=== PATIENT | male | born 1955 | race Caucasian/White ===

== ENCOUNTER 2023-08-26 07:49 | Inpatient (IN) | payer MEDICARE, BC ==
[2023-08-26] MEDS ORDERED: Naloxone 0.4 MG/ML SDV IVPUSH PRN ×2 (08:13→14:13)
[2023-08-26] MEDS ORDERED: Dextrose 5%-0.9% NaCl 1,000 ML IV SCH (08:15)
[2023-08-26 08:19] LABS: BASOPHILS PERCENT AUTO 0.2 % (0.1-1.3); HEMATOCRIT 38.5 % (38.4-49.7); HEMOGLOBIN 13.4 g/dL (12.9-16.9); IMMATURE GRAN ABSOLUTE AUTO 0.04 K/uL (0.00-0.23); IMMATURE GRAN PERCENT AUTO 0.3 % (0.0-0.7); LYMPHOCYTES ABSOLUTE AUTO 1.38 K/uL (0.8-3.3); LYMPHOCYTES PERCENT AUTO 11.6 % (11.4-47.7); MEAN CORPUSCULAR HEMOGLOBIN 32.8 pg (31.6-35.5); MEAN CORPUSCULAR HGB CONC 34.8 g/dL (31.6-35.5); MEAN CORPUSCULAR VOLUME 94.4 fL (81.4-99.0); MONOCYTES ABSOLUTE AUTO 0.88 K/uL (0.20-0.90); MONOCYTES PERCENT AUTO 7.4 % (3.3-12.6); NEUTROPHILS ABSOLUTE AUTO 9.61 K/uL (1.0-7.6); NEUTROPHILS PERCENT AUTO 80.5 % (40.0-78.1); PLATELET COUNT,PLT 151 K/uL (130-375); RED BLOOD CELL COUNT 4.08 M/uL (4.14-5.76); WHITE BLOOD CELL COUNT,WBC 11.9 K/uL (3.2-11.0)
[2023-08-26 08:27] LABS: BASOPHILS ABSOLUTE AUTO 0.02 K/uL (0.00-0.10)
[2023-08-26] MEDS: HYDROmorphone 0.5 MG/0.5 ML Syringe IVPUSH PRN ×4 (08:42→22:51)
[2023-08-26 08:44] LABS: INR 1.1; PROTHROMBIN TIME 10.9 sec (9.2-10.6); PTT,PARTIAL THROMBOPLSTIN TIME 25.6 sec (21.8-27.3)
[2023-08-26 08:45] LABS: CALCIUM 8.3 mg/dL (8.5-10.1); CREATININE 0.8 mg/dL (0.8-1.3); EST CRCL DRUG DOSING (CG) 108.5 mL/min; POTASSIUM,K 4.4 mmol/L (3.6-5.2)
[2023-08-26] MEDS ORDERED: Ondansetron 4 MG/2 ML SDV IVPUSH ONE (08:46)
[2023-08-26 08:48] LABS: ANION GAP 16.4 mmol/L (5.0-14.0)
[2023-08-26 09:35] LABS: APPEARANCE,URINE CLEAR (CLEAR); BILIRUBIN,URINE NEGATIVE (NEGATIVE); COLOR,URINE YELLOW (YELLOW); GLUCOSE,URINE NEGATIVE (NEGATIVE); KETONES,URINE 15 mg/dL (NEGATIVE); LEUKOCYTE ESTERASE,URINE NEGATIVE (NEGATIVE); NITRITE,URINE NEGATIVE (NEGATIVE); OCCULT BLOOD,URINE NEGATIVE (NEGATIVE); PH,URINE 5.5 (5.0-8.0); PROTEIN,URINE NEGATIVE (NEGATIVE); UROBILINOGEN,URINE 0.2 EU/dL (0.2-1.0)
[2023-08-26 09:42] LABS: RBC,URINE 0-5 (0-5); WBC,URINE 0-5 (0-5)
[2023-08-26 09:43] LABS: AMORPHOUS SEDIMENT,URINE NOT SEEN; BACTERIA,URINE NOT SEEN; EPITHELIAL CELLS,URINE FEW; MUCUS,URINE NOT SEEN
[2023-08-26] MEDS ORDERED: amLODIPine 5 MG Tab PO ONE (11:18)
[2023-08-26] MEDS ORDERED: Bupivacaine 0.5% 50 ML MDV ONE (13:51)
[2023-08-26] MEDS ORDERED: Albuterol 0.083% 2.5 MG/3 ML Neb Soln NEB PRN (14:13)
[2023-08-26] MEDS ORDERED: Sodium Chloride 0.9% 10 ML Syringe FLUSH PRN (14:13)
[2023-08-26] MEDS: Folic Acid 1 MG Tab PO SCH (14:37)
[2023-08-26] MEDS: Thiamine 100 MG Tab PO SCH (14:37)
[2023-08-26] MEDS: Sodium Chloride 0.9% 1,000 ML IV SCH ×2 (14:38→22:56)
[2023-08-26] MEDS ORDERED: ceFAZolin 2 GM in Premix Bag 1 BAG IV ONE (16:00)
[2023-08-26] MEDS ORDERED: Midazolam 1 MG/ML 2 ML SDV ONE ×2 (16:02→16:47)
[2023-08-26] MEDS ORDERED: fentaNYL 100 MCG/2 ML SDV ONE (16:02)
[2023-08-26] MEDS ORDERED: Propofol 200 MG/20 ML SDV ONE ×6 (16:02→17:56)
[2023-08-26] MEDS ORDERED: Lactated Ringers 1,000 ML ONE (16:59)
[2023-08-26] MEDS ORDERED: Ondansetron 4 MG/2 ML SDV ONE (17:06)
[2023-08-26] MEDS ORDERED: Sodium Chloride 0.9% 10 ML ONE (17:27)
[2023-08-26] MEDS ORDERED: Labetalol 20 MG/4 ML Syringe ONE (18:09)
[2023-08-26] MEDS ORDERED: Labetalol 20 MG/4 ML Syringe IVPUSH ONE (19:06)
[2023-08-26] MEDS: Lisinopril 5 MG Tab PO SCH (20:12)
[2023-08-26] MEDS: Aspirin 325 MG Tab.EC PO SCH (20:16)
[2023-08-26] MEDS: Ondansetron 4 MG/2 ML SDV IV PRN (21:28)
[2023-08-26] MEDS ORDERED: Sodium Chloride 0.9% 1,000 ML IV ONE (23:09)
[2023-08-27] MEDS: HYDROmorphone 0.5 MG/0.5 ML Syringe IVPUSH PRN (00:19)
[2023-08-27] MEDS ORDERED: Sodium Chloride 0.9% 1,000 ML IV ONE ×2 (01:22→10:20)
[2023-08-27] MEDS: Sodium Chloride 0.9% 1,000 ML IV SCH ×3 (02:23→17:48)
[2023-08-27] MEDS: oxyCODONE 5 MG Tab PO PRN ×3 (02:49→14:54)
[2023-08-27] MEDS: Ketorolac 30 MG/ML SDV IVPUSH PRN ×2 (03:02→17:54)
[2023-08-27 05:22] LABS: HEMATOCRIT 26.2 % (38.4-49.7); HEMOGLOBIN 8.9 g/dL (12.9-16.9); MEAN CORPUSCULAR HEMOGLOBIN 33.1 pg (31.6-35.5); MEAN CORPUSCULAR VOLUME 97.4 fL (81.4-99.0); RED BLOOD CELL COUNT 2.69 M/uL (4.14-5.76); WHITE BLOOD CELL COUNT,WBC 10.6 K/uL (3.2-11.0)
[2023-08-27 05:38] LABS: CALCIUM 7.6 mg/dL (8.5-10.1); CREATININE 0.9 mg/dL (0.8-1.3); EST CRCL DRUG DOSING (CG) 96.44 mL/min; POTASSIUM,K 4.7 mmol/L (3.6-5.2)
[2023-08-27 05:42] LABS: ANION GAP 11.7 mmol/L (5.0-14.0)
[2023-08-27] MEDS: Aspirin 325 MG Tab.EC PO SCH (08:34)
[2023-08-27] MEDS: Folic Acid 1 MG Tab PO SCH (08:35)
[2023-08-27] MEDS: Thiamine 100 MG Tab PO SCH (08:36)
[2023-08-27] MEDS: Gabapentin 400 MG Cap PO SCH ×2 (12:25→20:42)
[2023-08-27] MEDS: LORazepam 1 MG Tab PO SCH ×2 (16:44→17:54)
[2023-08-28] MEDS: Gabapentin 400 MG Cap PO SCH ×3 (04:25→21:33)
[2023-08-28] MEDS: oxyCODONE 5 MG Tab PO PRN ×2 (04:28→12:52)
[2023-08-28 04:34] LABS: HEMATOCRIT 18.2 % (38.4-49.7); MEAN CORPUSCULAR HEMOGLOBIN 33.5 pg (31.6-35.5); MEAN CORPUSCULAR HGB CONC 34.1 g/dL (31.6-35.5); MEAN CORPUSCULAR VOLUME 98.4 fL (81.4-99.0); RED BLOOD CELL COUNT 1.85 M/uL (4.14-5.76); WHITE BLOOD CELL COUNT,WBC 8.4 K/uL (3.2-11.0)
[2023-08-28 04:42] LABS: HEMOGLOBIN 6.2 g/dL (12.9-16.9)
[2023-08-28 04:48] LABS: CALCIUM 7.3 mg/dL (8.5-10.1); CREATININE 0.8 mg/dL (0.8-1.3); EST CRCL DRUG DOSING (CG) 108.5 mL/min
[2023-08-28] MEDS: Lisinopril 5 MG Tab PO SCH (09:44)
[2023-08-28] MEDS: Aspirin 325 MG Tab.EC PO SCH (09:44)
[2023-08-28] MEDS: Thiamine 100 MG Tab PO SCH (09:44)
[2023-08-28] MEDS: Folic Acid 1 MG Tab PO SCH (09:44)
[2023-08-28] MEDS: Acetaminophen 325 MG Tab PO PRN (13:29)
[2023-08-28] MEDS: Ketorolac 30 MG/ML SDV IVPUSH PRN (15:53)
[2023-08-28] MEDS: Polyethylene Glycol 3350 Powder 17 GM Packet PO PRN (18:34)
[2023-08-29 04:13] LABS: HEMATOCRIT 24.1 % (38.4-49.7); HEMOGLOBIN 8.2 g/dL (12.9-16.9); MEAN CORPUSCULAR HEMOGLOBIN 32.9 pg (31.6-35.5); MEAN CORPUSCULAR VOLUME 96.8 fL (81.4-99.0); RED BLOOD CELL COUNT 2.49 M/uL (4.14-5.76); WHITE BLOOD CELL COUNT,WBC 8.5 K/uL (3.2-11.0)
[2023-08-29] MEDS: oxyCODONE 5 MG Tab PO PRN ×2 (05:09→18:39)
[2023-08-29] MEDS: Gabapentin 400 MG Cap PO SCH ×3 (05:09→20:37)
[2023-08-29] MEDS: Thiamine 100 MG Tab PO SCH (08:51)
[2023-08-29] MEDS: Lisinopril 5 MG Tab PO SCH (08:51)
[2023-08-29] MEDS: Folic Acid 1 MG Tab PO SCH (08:52)
[2023-08-29] MEDS: Ketorolac 30 MG/ML SDV IVPUSH PRN (08:52)
[2023-08-29] MEDS: Polyethylene Glycol 3350 Powder 17 GM Packet PO PRN (10:58)
[2023-08-29] MEDS: Aspirin 325 MG Tab.EC PO SCH ×2 (11:00→11:10)
[2023-08-29] MEDS ORDERED: Aspirin 81 MG Tab.Chew PO ONE (11:30)
[2023-08-29] MEDS: Carbamide Peroxide 6.5% Otic Soln 15 ML Bottle EARBOTH SCH ×2 (13:14→20:37)
[2023-08-29] MEDS: Acetaminophen 325 MG Tab PO PRN (14:45)
[2023-08-29] MEDS: Aspirin 81 MG Tab.Chew PO SCH (20:37)
[2023-08-30] MEDS: Gabapentin 400 MG Cap PO SCH ×3 (03:54→20:25)
[2023-08-30] MEDS: oxyCODONE 5 MG Tab PO PRN ×3 (07:44→20:21)
[2023-08-30] MEDS ORDERED: Pneumococcal 20-Valent Conjug 0.5 ML Syringe IM ONE (09:00)
[2023-08-30] MEDS: Polyethylene Glycol 3350 Powder 17 GM Packet PO PRN (09:14)
[2023-08-30] MEDS: Aspirin 81 MG Tab.Chew PO SCH ×2 (09:14→20:26)
[2023-08-30] MEDS: Lisinopril 5 MG Tab PO SCH (09:15)
[2023-08-30] MEDS: Thiamine 100 MG Tab PO SCH (09:15)
[2023-08-30] MEDS: Carbamide Peroxide 6.5% Otic Soln 15 ML Bottle EARBOTH SCH ×2 (09:15→20:37)
[2023-08-30] MEDS: Folic Acid 1 MG Tab PO SCH (09:15)
[2023-08-30] MEDS ORDERED: Bisacodyl 5 MG Tab PO ONE (10:00)
[2023-08-30] MEDS ORDERED: Oxymetazoline 0.05% Nasal Spray 30 ML Bottle NAS PRN (12:55)
[2023-08-30] MEDS ORDERED: Bisacodyl 10 MG Supp RECTAL ONE (13:10)
[2023-08-30] MEDS ORDERED: FLU (Fluad Quad) 2023-24(65UP)/MF59C/PF 60 MCG/0.5 ML Syringe IM ONE (14:00)
[2023-08-30] MEDS: Ketorolac 30 MG/ML SDV IVPUSH PRN (14:04)
[2023-08-30] MEDS ORDERED: Polyethylene Glycol 3350 Powder 17 GM Packet PO ONE (20:30)
[2023-08-31] MEDS: Acetaminophen 325 MG Tab PO PRN (06:09)
[2023-08-31] MEDS: oxyCODONE 5 MG Tab PO PRN (06:09)
[2023-08-31] MEDS: Gabapentin 400 MG Cap PO SCH ×2 (06:10→11:11)
[2023-08-31] MEDS: Folic Acid 1 MG Tab PO SCH (08:58)
[2023-08-31] MEDS: Lisinopril 5 MG Tab PO SCH (08:58)
[2023-08-31] MEDS: Thiamine 100 MG Tab PO SCH (08:59)
[2023-08-31] MEDS: Carbamide Peroxide 6.5% Otic Soln 15 ML Bottle EARBOTH SCH (08:59)
[2023-08-31] MEDS: Aspirin 81 MG Tab.Chew PO SCH (08:59)
[2023-08-31 09:20] LABS: APPEARANCE,URINE CLEAR (CLEAR); BILIRUBIN,URINE NEGATIVE (NEGATIVE); GLUCOSE,URINE NEGATIVE (NEGATIVE); KETONES,URINE NEGATIVE (NEGATIVE); LEUKOCYTE ESTERASE,URINE NEGATIVE (NEGATIVE); NITRITE,URINE NEGATIVE (NEGATIVE); OCCULT BLOOD,URINE NEGATIVE (NEGATIVE); PH,URINE 6.5 (5.0-8.0); PROTEIN,URINE NEGATIVE (NEGATIVE)
[2023-08-31 09:26] LABS: AMORPHOUS SEDIMENT,URINE NOT SEEN; BACTERIA,URINE FEW; COLOR,URINE OTHER (YELLOW); EPITHELIAL CELLS,URINE FEW; MUCUS,URINE FEW; RBC,URINE 0-5 (0-5); WBC,URINE 0-5 (0-5)
[2023-08-31] MEDS ORDERED: Acetaminophen/HYDROcodone 325-5 MG Tab PO PRN (10:43)
[2023-08-31] MEDS: Ondansetron 4 MG/2 ML SDV IV PRN (10:53)
[2023-09-01 07:54] LABS: HEPATITIS C AB CIA INTERP Negative (Negative); HEPATITIS C ANTIBODY CIA INDEX 0.05 IV
[2023-09-01 07:57] LABS: HEPATITIS B SURFACE ANTIGEN Negative (Negative)
== END 2023-08-31 13:30 | DRG 522 ==
LOC: JP.ED 07:49 → JP.MS 12:23
PROVIDERS: ADMIT Hospitalist; ATTEND Internal Medicine
PROC: 0SRS0JZ Replacement of Left Hip Joint, Femoral Surface with Synthetic Substitute, Open Approach (ICD-10-PCS; principal; 2023-08-26 14:30)
DX: S72.002A Fracture of unspecified part of neck of left femur, initial encounter for closed fracture (principal); S50.312A Abrasion of left elbow, initial encounter; D62 Acute posthemorrhagic anemia; H81.10 Benign paroxysmal vertigo, unspecified ear; S70.12XA Contusion of left thigh, initial encounter; N40.1 Benign prostatic hyperplasia with lower urinary tract symptoms; W01.0XXA Fall on same level from slipping, tripping and stumbling without subsequent striking against object, initial encounter; Z20.822 Contact with and (suspected) exposure to COVID-19; F10.10 Alcohol abuse, uncomplicated; I10 Essential (primary) hypertension; Y92.009 Unspecified place in unspecified non-institutional (private) residence as the place of occurrence of the external cause; Z79.82 Long term (current) use of aspirin; Z79.899 Other long term (current) drug therapy; Z98.890 Other specified postprocedural states; Z87.891 Personal history of nicotine dependence
CPT/HCPCS: 36415; 51702; 72170 ×2; 73552 ×2; 73700 ×2; 80048; 81001; 82550; 85025; 85610; 85730; 86803; 87340; 87449; 93005; 96361; 96374; 96375; 99285; A9270; J1170; J2405; U0002; 36430; 51798; 71045; 71045-26; 85018; 85027; 86850; 86900; 86901; 86920; 86922; 90677; 90694; 93010; 97110-GP; 97162-GP; 97166-GO; 97530-GO; 97530-GP; 99222; 99232; 99239; C1776; G0008; G0009; J0690; J1885; J2250; J2704; J3010; J3490; J7030; J7120; P9016

== ENCOUNTER 2024-02-04 14:05 | Emergency (ER) | payer MEDICARE, BC ==
[2024-02-04] MEDS: Ketorolac 30 MG/ML SDV IM ONE (15:29)
[2024-02-04 15:32] LABS: BASOPHILS PERCENT AUTO 0.2 % (0.1-1.3); EOSINOPHILS PERCENT AUTO 0.2 % (0.0-5.4); HEMATOCRIT 41.7 % (38.4-49.7); HEMOGLOBIN 14.2 g/dL (12.9-16.9); IMMATURE GRAN ABSOLUTE AUTO 0.04 K/uL (0.00-0.23); IMMATURE GRAN PERCENT AUTO 0.3 % (0.0-0.7); LYMPHOCYTES ABSOLUTE AUTO 1.61 K/uL (0.8-3.3); LYMPHOCYTES PERCENT AUTO 14.1 % (11.4-47.7); MEAN CORPUSCULAR HEMOGLOBIN 32.3 pg (31.6-35.5); MEAN CORPUSCULAR HGB CONC 34.1 g/dL (31.6-35.5); MEAN CORPUSCULAR VOLUME 94.8 fL (81.4-99.0); MONOCYTES ABSOLUTE AUTO 0.71 K/uL (0.20-0.90); MONOCYTES PERCENT AUTO 6.2 % (3.3-12.6); NEUTROPHILS ABSOLUTE AUTO 9.05 K/uL (1.0-7.6); PLATELET COUNT,PLT 184 K/uL (130-375); WHITE BLOOD CELL COUNT,WBC 11.5 K/uL (3.2-11.0)
[2024-02-04 15:34] LABS: BASOPHILS ABSOLUTE AUTO 0.02 K/uL (0.00-0.10); EOSINOPHILS ABSOLUTE AUTO 0.02 K/uL (0.00-0.40)
[2024-02-04] MEDS: Ondansetron 4 MG Tab.DIS PO ONE (15:38)
[2024-02-04 15:50] LABS: CALCIUM 9.2 mg/dL (8.5-10.1); CREATININE 0.8 mg/dL (0.8-1.3); EST CRCL DRUG DOSING (CG) 108.5 mL/min; POTASSIUM,K 4.2 mmol/L (3.6-5.2)
[2024-02-04 15:51] LABS: ANION GAP 17.2 mmol/L (5.0-14.0)
[2024-02-04] MEDS: Acetaminophen/HYDROcodone 325-5 MG Tab PO ONE (17:37)
== END 2024-02-04 18:15 | disposition home or self-care (01) ==
LOC: JP.ED 14:05
DX: M25.522 Pain in left elbow (principal); Z91.048 Other nonmedicinal substance allergy status; Z79.899 Other long term (current) drug therapy
CPT/HCPCS: 36415; 80048; 84550; 85025; 96372; 99283; A9270; J1885; Q0162

== ENCOUNTER 2024-06-21 07:30 | Day surgery (SDC) | payer MEDICARE, BC ==
[2024-06-21] MEDS ORDERED: Midazolam 1 MG/ML 2 ML SDV ONE (08:31)
[2024-06-21] MEDS ORDERED: Propofol 200 MG/20 ML SDV ONE (08:31)
[2024-06-21] MEDS ORDERED: fentaNYL 50 MCG/ML SDV ONE (08:31)
[2024-06-21] MEDS: Sodium Chloride 0.9% 1,000 ML IV SCH (09:15)
[2024-06-21] MEDS ORDERED: Sodium Chloride 0.9% 1,000 ML IV SCH (14:30)
== END 2024-06-21 10:12 | disposition home or self-care (01) ==
LOC: JP.SDS 07:30
PROVIDERS: ATTEND Surgery
DX: Z12.11 Encounter for screening for malignant neoplasm of colon (principal); K63.5 Polyp of colon; K57.30 Diverticulosis of large intestine without perforation or abscess without bleeding; K21.9 Gastro-esophageal reflux disease without esophagitis
CPT/HCPCS: 88305; J2250; J2704; J3010; J7030